=== PATIENT | female | born 1995 | race Caucasian/White ===

== ENCOUNTER 2018-08-03 08:50 | Inpatient (IN) | payer MEDICAID ==
[2018-08-03] MEDS: LACTATED RINGER'S 1,000 ML IV* ×2 (09:57→16:30)
[2018-08-03] MEDS ORDERED: BUTORPHANOL 2 MG INJ IV (10:00)
[2018-08-03] MEDS ORDERED: OXYTOCIN 30 UNITS/LR 500 ML IV (10:00)
[2018-08-03] MEDS ORDERED: BUTORPHANOL 1 MG INJ IV (10:00)
[2018-08-03] MEDS ORDERED: LIDOCAINE 1% (MPF) 30 ML INJ INJ (10:00)
[2018-08-03] MEDS ORDERED: METHYLERGONOVINE 0.2 MG INJ IM (10:00)
[2018-08-03] MEDS ORDERED: ACETAMINOPHEN/CODEINE #3 TAB PO (10:00)
[2018-08-03] MEDS ORDERED: IBUPROFEN 600 MG TAB PO (10:00)
[2018-08-03] MEDS ORDERED: MISOPROSTOL 200 MCG TAB PR (10:00)
[2018-08-03] MEDS ORDERED: CARBOPROST 250 MCG INJ IM (10:00)
[2018-08-03 10:13] LABS: ADD MAN DIFF? NO
[2018-08-03 10:21] LABS: BASOPHILS % 0.4 % (0.0-2.0); EOSINOPHILS # 0.1 10^3/ul (0.0-0.5); EOSINOPHILS % 0.7 % (0.0-7.0); HEMOGLOBIN 12.5 g/dl (12.0-16.0); LYMPHOCYTES # 1.8 10^3/ul (0.8-2.9); LYMPHOCYTES % 24.3 % (15.0-51.0); MEAN CORPUSCULAR HEMOGLOBIN 31.2 pg (29.0-33.0); MEAN CORPUSCULAR HGB CONC 34.7 g/dl (32.0-37.0); MEAN CORPUSCULAR VOLUME 89.8 fl (82.0-101.0); MEAN PLATELET VOLUME 12.4 fl (7.4-10.4); MONOCYTE # 0.7 10^3/ul (0.3-0.9); MONOCYTES % 9.1 % (0.0-11.0); NEUTROPHIL # 4.8 10^3/ul (1.6-7.5); NEUTROPHILS % 64.7 % (39.0-77.0); PLATELET COUNT 139 10^3/UL (140-415); RED BLOOD COUNT 4.01 10^6/ul (4.20-5.40); RED CELL DISTRIBUTION WIDTH 13.5 % (11.5-14.5)
[2018-08-03 10:21] LABS: WHITE BLOOD COUNT 7.4 10^3/ul (4.8-10.8)
[2018-08-03 10:28] LABS: ADD UMIC YES; UR ASCORBIC ACID NEGATIVE (NEGATIVE); UR BACTERIA FEW /HPF (NONE SEEN); UR BILIRUBIN (Dip) NEGATIVE (NEGATIVE); UR BLOOD (Dip) NEGATIVE (NEGATIVE); UR CLARITY CLOUDY (CLEAR); UR COLOR YELLOW (YELLOW); UR GLUCOSE (Dip) NEGATIVE (NEGATIVE); UR KETONES (Dip) NEGATIVE (NEGATIVE); UR LEUKOCYTE ESTERASE (Dip) 3+ Leu/ul (NEGATIVE); UR MUCUS FEW /HPF (NONE SEEN); UR NITRITE (Dip) NEGATIVE (NEGATIVE); UR RBC 6 /HPF (0-5); UR SPECIFIC GRAVITY (Dip) 1.017 (1.003-1.030); UR SQUAMOUS EPITHELIAL CELL MANY /HPF (FEW); UR TOTAL PROTEIN (Dip) NEGATIVE (NEGATIVE); UR UROBILINOGEN (Dip) NEGATIVE (NEGATIVE); UR WBC 119 /HPF (0-5)
[2018-08-03 10:33] LABS: INR 0.85; PROTIME 11.7 Sec (11.9-14.9); PT RATIO 0.9
[2018-08-03 10:34] LABS: PARTIAL THROMBOPLASTIN TIME 25.9 Sec (25.0-35.0)
[2018-08-03] MEDS: OXYTOCIN 30 UNITS/LR 500 ML IV (12:01)
[2018-08-03 12:10] LABS: HEPATITIS B SURFACE ANTIGEN NEGATIVE (NEGATIVE)
[2018-08-03 15:27] LABS: RAPID PLASMA REAGIN NONREACTIVE (NR)
[2018-08-04] MEDS: LACTATED RINGER'S 1,000 ML IV* ×3 (00:44→19:42)
[2018-08-04] MEDS ORDERED: FENTAnyl 2MCG/ML-ROPIV 0.2% 100 ML (06:50)
[2018-08-04] MEDS ORDERED: LIDOCAINE 1.5%/EPI MPF (SDV) 30 ML VIAL (07:00)
[2018-08-04] MEDS ORDERED: NALOXONE (0.4 MG/ML) INJ IV (07:00)
[2018-08-04] MEDS ORDERED: DIPHENHYDRAMINE 50 MG INJ IV (07:00)
[2018-08-04] MEDS: ONDANSETRON 4 MG INJ IV (13:40)
[2018-08-04] MEDS ORDERED: MINERAL OIL 30ML CUP PO (14:00)
[2018-08-04 14:12] LABS: HIV 1&2 ANTIBODY NEGATIVE (NEGATIVE)
[2018-08-04] MEDS: FENTAnyl 2MCG/ML-ROPIV 0.2% 100 ML BAG EPI (15:52)
[2018-08-04] MEDS: OXYTOCIN 30 UNITS/LR 500 ML IV ×3 (19:45→23:50)
[2018-08-04] MEDS: AMPICILLIN 2 GM/NS (PMX) 100 ML IV (21:02)
[2018-08-04] MEDS: MINERAL OIL LIGHT 10 ML VIAL TOP (21:22)
[2018-08-04] MEDS ORDERED: CITRIC ACID/NA CITRATE 30 ML CUP (21:44)
[2018-08-04] MEDS: CITRIC ACID/NA CITRATE 30 ML CUP PO (21:52)
[2018-08-04] MEDS: GENTAMICIN 120 MG/NS (PMX) 100 ML IVPB (21:52)
[2018-08-04] MEDS: CEFAZOLIN 2 GM/50 ML (PMX) 50 ML IV (21:59)
[2018-08-04] MEDS ORDERED: OXYTOCIN 10 UNIT INJ ×2 (22:41→23:13)
[2018-08-04] MEDS ORDERED: morphine SULFATE/PF (10 MG/10 ML) INJ (22:42)
[2018-08-04] MEDS ORDERED: MIDAZOLAM 1 MG/ML 2 ML INJ ×2 (22:43→22:57)
[2018-08-04] MEDS ORDERED: KETOROLAC 30 MG INJ (23:28)
[2018-08-04] MEDS ORDERED: ACETAMINOPHEN 1000MG/100ML IV 100 ML (23:29)
[2018-08-04] MEDS: AZITHROMYCIN 500MG/NS (PMX) 250 ML IVPB (23:30)
[2018-08-04] MEDS ORDERED: HYDROmorphONE 0.5 MG/0.5 ML SYG (23:54)
[2018-08-05] MEDS ORDERED: DIPHENHYDRAMINE 50 MG INJ IV ×2
[2018-08-05] MEDS ORDERED: NALBUPHINE HCL (10 MG/1 ML) INJ IV
[2018-08-05] MEDS ORDERED: ONDANSETRON 4 MG INJ IV ×2
[2018-08-05] MEDS ORDERED: HYDROmorphONE 1 MG/ML SYG IV
[2018-08-05] MEDS ORDERED: NALOXONE (0.4 MG/ML) INJ IV
[2018-08-05] MEDS ORDERED: HYDROmorphONE 0.5 MG/0.5 ML SYG IV
[2018-08-05] MEDS ORDERED: MEPERIDINE 25 MG INJ IV
[2018-08-05] MEDS ORDERED: METOCLOPRAMIDE 10 MG INJ IV
[2018-08-05] MEDS ORDERED: MIDAZOLAM 1 MG/ML 2 ML INJ IV
[2018-08-05] MEDS ORDERED: HYDROmorphONE 1 MG/5 ML IV SYRINGE IV ×3
[2018-08-05] MEDS ORDERED: LORAZEPAM 2 MG INJ IV
[2018-08-05] MEDS ORDERED: ZOLPIDEM 5 MG TAB PO
[2018-08-05] MEDS: HYDROmorphONE 0.5 MG/0.5 ML SYG IV (00:06)
[2018-08-05] MEDS: LACTATED RINGER'S 1,000 ML IV ×5 (00:06→21:28)
[2018-08-05] MEDS: CITRIC ACID/NA CITRATE 30 ML CUP PO (00:06)
[2018-08-05] MEDS ORDERED: OXYCODONE/ACETAMINOPHEN (5/325) TAB PO (02:00)
[2018-08-05] MEDS ORDERED: LANOLIN 7 GM TUBE TOP (02:00)
[2018-08-05] MEDS ORDERED: MISOPROSTOL 200 MCG TAB PR (02:00)
[2018-08-05] MEDS ORDERED: ACETAMINOPHEN 325 MG TAB PO (02:00)
[2018-08-05] MEDS ORDERED: METHYLERGONOVINE 0.2 MG INJ IM (02:00)
[2018-08-05] MEDS ORDERED: HYDROCODONE/APAP (5/325) TAB PO ×2 (02:00→22:43)
[2018-08-05] MEDS ORDERED: OXYTOCIN 30 UNITS/LR 500 ML IV (02:00)
[2018-08-05] MEDS ORDERED: CARBOPROST 250 MCG INJ IM (02:00)
[2018-08-05] MEDS ORDERED: IBUPROFEN 800 MG TAB PO (06:00)
[2018-08-05] MEDS: AZITHROMYCIN 500MG/NS (PMX) 250 ML IVPB (06:40)
[2018-08-05] MEDS ORDERED: CLINDAMYCIN 900 MG/D5W (PMX) 50 ML IVPB (07:00)
[2018-08-05 07:12] LABS: HEMATOCRIT 31.7 % (37.0-47.0); HEMOGLOBIN 10.8 g/dl (12.0-16.0); MEAN CORPUSCULAR HEMOGLOBIN 31.6 pg (29.0-33.0); MEAN CORPUSCULAR HGB CONC 34.1 g/dl (32.0-37.0); MEAN CORPUSCULAR VOLUME 92.7 fl (82.0-101.0); MEAN PLATELET VOLUME 12.2 fl (7.4-10.4); PLATELET COUNT 123 10^3/UL (140-415); RED BLOOD COUNT 3.42 10^6/ul (4.20-5.40); RED CELL DISTRIBUTION WIDTH 13.5 % (11.5-14.5)
[2018-08-05 07:13] LABS: ADD MAN DIFF? YES; POSITIVE DIFF @See below
[2018-08-05] MEDS: CLINDAMYCIN 900 MG/D5W (PMX) 50 ML IVPB ×3 (07:58→23:35)
[2018-08-05] MEDS ORDERED: AMPICILLIN 2 GM/NS (PMX) 100 ML IVPB (08:00)
[2018-08-05] MEDS: AMPICILLIN 2 GM/NS (PMX) 100 ML IVPB ×3 (08:57→21:28)
[2018-08-05] MEDS ORDERED: GENTAMICIN 80 MG INJ IV (09:00)
[2018-08-05] MEDS: SENNA/DOCUSATE NA (8.6MG/50MG) TAB PO ×2 (09:15→21:28)
[2018-08-05] MEDS: GENTAMICIN IVPB ×2 (09:56→17:01)
[2018-08-05] MEDS: SOD CHLORIDE 0.9% IVPB ×2 (09:56→17:01)
[2018-08-05 10:15] LABS: ANISOCYTOSIS 1+ (0-0); BAND NEUTROPHILS #M 2.6 10^3/ul (0.0-0.6); BAND NEUTROPHILS % (M) 12 % (0-4); BURR CELLS 1+ (0-0); GIANT THROMBO% (M) 2 % (0-0); LYMPHOCYTES #M 1.5 10^3/ul (0.8-2.9); LYMPHOCYTES % (M) 7 % (15-51); MONOCYTE #M 0.8 10^3/ul (0.3-0.9); MONOCYTES % (M) 4 % (0-11); PLATELET ESTIMATE DECREASED; ROULEAU 1+ (0-0); SEG NEUT #M 17.5 10^3/ul (1.6-7.5); SEGMENTED NEUTROPHILS (M) % 77 % (39-77); SMUDGE%M 9 % (0-0)
[2018-08-05] MEDS: KETOROLAC 30 MG INJ IV (18:49)
[2018-08-05] MEDS: OXYCODONE/ACETAMINOPHEN (5/325) TAB PO (23:34)
[2018-08-06] MEDS: GENTAMICIN IVPB ×3 (00:47→17:27)
[2018-08-06] MEDS: SOD CHLORIDE 0.9% IVPB ×3 (00:47→17:27)
[2018-08-06] MEDS: AMPICILLIN 2 GM/NS (PMX) 100 ML IVPB ×4 (03:41→21:06)
[2018-08-06] MEDS: IBUPROFEN 800 MG TAB PO ×3 (05:36→22:04)
[2018-08-06] MEDS: CLINDAMYCIN 900 MG/D5W (PMX) 50 ML IVPB ×2 (07:52→16:38)
[2018-08-06 08:05] LABS: ADD MAN DIFF? NO
[2018-08-06 08:12] LABS: ABNORMAL IP MESSAGE 1; BASOPHILS % 0.1 % (0.0-2.0); EOSINOPHILS # 0.1 10^3/ul (0.0-0.5); EOSINOPHILS % 0.5 % (0.0-7.0); HEMATOCRIT 27.4 % (37.0-47.0); HEMOGLOBIN 9.1 g/dl (12.0-16.0); LYMPHOCYTES # 1.6 10^3/ul (0.8-2.9); LYMPHOCYTES % 10.6 % (15.0-51.0); MEAN CORPUSCULAR HEMOGLOBIN 31.4 pg (29.0-33.0); MEAN CORPUSCULAR HGB CONC 33.2 g/dl (32.0-37.0); MEAN CORPUSCULAR VOLUME 94.5 fl (82.0-101.0); MEAN PLATELET VOLUME 12.4 fl (7.4-10.4); MONOCYTE # 1.1 10^3/ul (0.3-0.9); MONOCYTES % 7.3 % (0.0-11.0); NEUTROPHILS % 80.7 % (39.0-77.0); PLATELET COUNT 99 10^3/UL (140-415); RED CELL DISTRIBUTION WIDTH 13.8 % (11.5-14.5)
[2018-08-06 08:12] LABS: WHITE BLOOD COUNT 14.9 10^3/ul (4.8-10.8)
[2018-08-06 08:33] LABS: POSITIVE DIFF @See below
[2018-08-06] MEDS: SENNA/DOCUSATE NA (8.6MG/50MG) TAB PO ×2 (09:08→21:06)
[2018-08-06] MEDS: LACTATED RINGER'S 1,000 ML IV ×2 (13:39→22:04)
[2018-08-07] MEDS: CLINDAMYCIN 900 MG/D5W (PMX) 50 ML IVPB ×3 (00:07→16:51)
[2018-08-07] MEDS: NA PHOSPHATE/BIPHOS 133 ML ENEMA PR (00:17)
[2018-08-07] MEDS: GENTAMICIN IVPB ×3 (01:28→16:51)
[2018-08-07] MEDS: SOD CHLORIDE 0.9% IVPB ×3 (01:28→16:51)
[2018-08-07] MEDS: LACTATED RINGER'S 1,000 ML IV ×2 (01:31→19:34)
[2018-08-07] MEDS: AMPICILLIN 2 GM/NS (PMX) 100 ML IVPB ×2 (03:00→12:10)
[2018-08-07] MEDS: IBUPROFEN 800 MG TAB PO ×2 (05:32→14:51)
[2018-08-07 08:57] LABS: ADD MAN DIFF? NO
[2018-08-07] MEDS: DIPHTH/TET/ACEL PERTUSS (ADULT) 0.5 ML VIAL IM* (09:00)
[2018-08-07] MEDS: MEASLES,MUMPS,RUBELLA VACCINE INJ SC* (09:00)
[2018-08-07 09:05] LABS: WHITE BLOOD COUNT 10.8 10^3/ul (4.8-10.8)
[2018-08-07 09:05] LABS: BASOPHILS % 0.3 % (0.0-2.0); EOSINOPHILS # 0.1 10^3/ul (0.0-0.5); EOSINOPHILS % 0.9 % (0.0-7.0); HEMATOCRIT 27.4 % (37.0-47.0); HEMOGLOBIN 8.9 g/dl (12.0-16.0); LYMPHOCYTES # 1.6 10^3/ul (0.8-2.9); LYMPHOCYTES % 14.3 % (15.0-51.0); MEAN CORPUSCULAR HEMOGLOBIN 30.7 pg (29.0-33.0); MEAN CORPUSCULAR HGB CONC 32.5 g/dl (32.0-37.0); MEAN CORPUSCULAR VOLUME 94.5 fl (82.0-101.0); MEAN PLATELET VOLUME 12.3 fl (7.4-10.4); MONOCYTE # 0.7 10^3/ul (0.3-0.9); MONOCYTES % 6.5 % (0.0-11.0); NEUTROPHIL # 8.4 10^3/ul (1.6-7.5); NEUTROPHILS % 77.4 % (39.0-77.0); PLATELET COUNT 127 10^3/UL (140-415); RED CELL DISTRIBUTION WIDTH 13.9 % (11.5-14.5)
[2018-08-07] MEDS: SENNA/DOCUSATE NA (8.6MG/50MG) TAB PO (09:25)
== END 2018-08-07 20:50 | disposition home or self-care (01) | DRG 766 ==
LOC: L-D 08:50 → PP1 08-05 02:30
PROVIDERS: Obstetrics & Gynecology
PROC: 10D00Z1 Extraction of Products of Conception, Low, Open Approach (ICD-10-PCS; principal; 2018-08-04 22:30)
PROC: 10907ZC Drainage of Amniotic Fluid, Therapeutic from Products of Conception, Via Natural or Artificial Opening (ICD-10-PCS; 2018-08-04 22:30)
DX: O62.1 Secondary uterine inertia (principal); O62.0 Primary inadequate contractions; Z3A.40 40 weeks gestation of pregnancy; Z37.0 Single live birth
CPT/HCPCS: 62319; 76816; 80170; 81001; 85025; 85610; 85730; 86592; 86703; 86850; 86900; 86901; 87086; 87340; 99464